=== PATIENT | female | born 1970 | race African-American/Black ===

== ENCOUNTER → 2021-12-21 | Outpatient (CLI) | payer MEDICAID ==
[2021-12-21 16:16] LABS: FREE T4 1.39 NG/DL (0.76-1.46); THYROID STIMULATING HORMONE 0.107 uIU/ML (0.358-3.740)
== END ==
LOC: M LAB 15:01
PROVIDERS: ATTEND Internal Medicine
DX: E89.0 Postprocedural hypothyroidism (principal)

== ENCOUNTER → 2022-03-02 | Outpatient (CLI) | payer OTHER | LOC: M RAD 11:44 | PROVIDERS: ATTEND Physician Assistant | DX: M25.561 Pain in right knee (principal) ==

== ENCOUNTER 2022-03-06 10:00 | Outpatient (RCR) | payer OTHER | END 2022-03-10 | LOC: M PT 10:00 | PROVIDERS: ATTEND Physician Assistant | DX: M25.561 Pain in right knee (principal) ==

== ENCOUNTER → 2022-03-06 | Outpatient (CLI) | payer OTHER ==
[2022-03-06 12:10] LABS: FREE T4 1.4 NG/DL (0.76-1.46); THYROID STIMULATING HORMONE 0.724 uIU/ML (0.358-3.740)
== END ==
LOC: M LAB 10:53
PROVIDERS: ATTEND Nurse Practitioner Family
DX: E89.0 Postprocedural hypothyroidism (principal)

== ENCOUNTER → 2022-04-15 | Outpatient (CLI) | payer OTHER ==
[~2022-04-15] MED LIST: CETI-24 PO; SYNT125T PO; VITA200016 PO
== END ==
LOC: M LABSMTC 11:20
PROVIDERS: ATTEND Surgery
DX: Z01.812 Encounter for preprocedural laboratory examination (principal)

== ENCOUNTER 2022-04-18 09:31 | Day surgery (SDC) | payer OTHER ==
[~2022-04-18] VITALS: Ht 157.5 cm; Wt 52.2 kg
[~2022-04-18 09:31] MED LIST changes: +LIDOCAINE 2% 100MG/5ML SDV (FOR ANES.) As Ordered ONE; +NS 1,000 ML IV ONE; +propofoL 200 MG/20 ML VIAL As Ordered ONE
[2022-04-18 12:30] VITALS: BP 143/64
== END 2022-04-18 12:42 | disposition home or self-care (01) ==
LOC: M OPP 09:31
PROVIDERS: ATTEND Surgery
DX: Z12.11 Encounter for screening for malignant neoplasm of colon (principal); K64.1 Second degree hemorrhoids; Z91.018 Allergy to other foods

== ENCOUNTER 2022-05-05 11:56 | Emergency (ER) | payer OTHER ==
[~2022-05-05] VITALS: Ht 157.5 cm; Wt 51.4 kg
[~2022-05-05 11:56] MED LIST changes: -LIDOCAINE 2% 100MG/5ML SDV (FOR ANES.) As Ordered ONE; -NS 1,000 ML IV ONE; -propofoL 200 MG/20 ML VIAL As Ordered ONE
[2022-05-05 11:57] VITALS: BP 129/60
== END 2022-05-05 13:44 | disposition home or self-care (01) ==
LOC: M ED 11:56
DX: S93.402A Sprain of unspecified ligament of left ankle, initial encounter (principal); X58.XXXA Exposure to other specified factors, initial encounter; Y92.018 Other place in single-family (private) house as the place of occurrence of the external cause; E03.9 Hypothyroidism, unspecified; Z91.018 Allergy to other foods; J30.89 Other allergic rhinitis; Z79.899 Other long term (current) drug therapy; Z79.890 Hormone replacement therapy

== ENCOUNTER → 2022-05-22 | Outpatient (CLI) | payer OTHER | LOC: M SOG 08:04 | PROVIDERS: ATTEND Orthopaedic Surgery Hand Surgery | DX: M25.572 Pain in left ankle and joints of left foot (principal) ==

== ENCOUNTER → 2022-09-17 | Outpatient (CLI) | payer OTHER | LOC: M LABSMTC 11:37 | PROVIDERS: ATTEND Anesthesiology | DX: Z01.812 Encounter for preprocedural laboratory examination (principal); Z11.52 Encounter for screening for COVID-19 ==

== ENCOUNTER 2022-09-19 06:18 | Day surgery (SDC) | payer OTHER ==
[~2022-09-19] VITALS: Ht 157.5 cm; Wt 51.9 kg
[2022-09-19] MEDS ORDERED: LR 1,000 ML IV SCH ×2 (06:35→09:20)
[2022-09-19] MEDS ORDERED: ceFAZolin SOD 2 GM in IV 1 EA IV ONE (07:00)
[2022-09-19] MEDS ORDERED: LIDOCAINE 1% SDV 30ML VIAL As Ordered ONE (07:09)
[2022-09-19] MEDS ORDERED: BUPIVACAINE HCL 0.5% 30ML VIAL As Ordered ONE (07:09)
[2022-09-19] MEDS ORDERED: LIDOCAINE 2% 100MG/5ML SDV (FOR ANES.) As Ordered ONE (07:13)
[2022-09-19] MEDS ORDERED: MIDAZOLAM INJ 2MG/2ML VIAL (J2250 PER 1MG) As Ordered ONE (07:13)
[2022-09-19] MEDS ORDERED: fentaNYL 100 MCG/2 ML INJECTION As Ordered ONE (07:13)
[2022-09-19] MEDS ORDERED: propofoL 200 MG/20 ML VIAL As Ordered ONE (07:13)
[2022-09-19] MEDS ORDERED: ONDANSETRON 4MG 2ML VIAL As Ordered ONE (07:42)
[2022-09-19] MEDS ORDERED: dexameTHASONE 4 MG/ML 1ML VIAL (J1100 PER 1MG) As Ordered ONE (07:42)
[2022-09-19] MEDS ORDERED: ACETAMINOPHEN 1000MG 100ML IV BAG As Ordered ONE (07:44)
[2022-09-19] MEDS ORDERED: KETOROLAC 60MG 2ML VIAL As Ordered ONE (08:01)
[2022-09-19] MEDS ORDERED: ePHEDrine SULFATE 25 MG/5 ML(5MG/ML) SYRINGE As Ordered ONE (08:02)
[2022-09-19] MEDS ORDERED: ONDANSETRON 4MG 2ML VIAL IV PRN (09:20)
[2022-09-19] MEDS ORDERED: HYDROMORPHONE HCL 0.5 MG/ 0.5 ML SYRINGE (J1170 PER 1) IV PRN (09:20)
[2022-09-19] MEDS ORDERED: fentaNYL 100 MCG/2 ML INJECTION IV PRN (09:20)
[2022-09-19] MEDS ORDERED: oxyCODONE 5MG TAB PO PRN (09:20)
[2022-09-19 10:20] VITALS: BP 135/72
== END 2022-09-19 10:47 | disposition home or self-care (01) ==
LOC: M SDC 06:18
PROVIDERS: ATTEND Podiatrist Foot & Ankle Surgery
DX: M21.612 Bunion of left foot (principal); M20.12 Hallux valgus (acquired), left foot; E03.9 Hypothyroidism, unspecified; J30.1 Allergic rhinitis due to pollen; Z79.899 Other long term (current) drug therapy; Z91.018 Allergy to other foods; Z88.3 Allergy status to other anti-infective agents
CPT/HCPCS: 28299; 88300; C1713; J0131; J0690; J1100; J1885; J2250; J2405; J3010

== ENCOUNTER → 2022-11-01 | Outpatient (REF) | payer OTHER, MEDICAID ==
[2022-11-01 14:40] LABS: HEMATOCRIT 45.3 % (36.0-47.0); HEMOGLOBIN 14.9 g/dl (12.0-15.5); MEAN CORPUSCULAR HEMOGLOBIN 30.5 pg (27.0-33.0); MEAN CORPUSCULAR HGB CONC 32.9 g/dl (32.0-36.5); MEAN CORPUSCULAR VOLUME 92.6 fl (80.0-96.0); PLATELET COUNT, AUTOMATED 185 10^3/uL (150-450); RED BLOOD COUNT 4.89 10^6/uL (4.00-5.40); WHITE BLOOD COUNT 5.1 10^3/uL (4.0-10.0)
[2022-11-01 15:03] LABS: ALBUMIN 4.3 G/DL (3.2-5.2); ALKALINE PHOSPHATASE 82 U/L (46-116); ALT/SGPT 29 U/L (7.0-40); AST/SGOT 30 U/L (<34); BILIRUBIN,TOTAL 0.4 MG/DL (0.3-1.2); BLOOD UREA NITROGEN 14 MG/DL (9-23); CALCIUM LEVEL 9.6 MG/DL (8.5-10.1); CARBON DIOXIDE LEVEL 27 MMOL/L (20-31); CHLORIDE LEVEL 102 MMOL/L (98-107); CHOLESTEROL LEVEL 149 MG/DL (<200); CHOLESTEROL RISK RATIO 2.26 (<5); CREATININE FOR GFR 1.11 MG/DL (0.55-1.30); GLOMERULAR FILTRATION RATE > 60.0 (>51); GLUCOSE, FASTING 99 MG/DL (60-100); HDL CHOLESTEROL 65.9 MG/DL (>40); LDL CHOLESTEROL 71.1 MG/DL (<100); NON-HDL-C 83 MG/DL; POTASSIUM SERUM 4.1 MMOL/L (3.5-5.1); SODIUM LEVEL 136 MMOL/L (136-145); TOTAL PROTEIN 8.1 G/DL (5.7-8.2); TRIGLYCERIDES LEVEL 60 MG/DL (<150)
[2022-11-01 15:11] LABS: THYROID STIMULATING HORMONE 1.742 uIU/ML (0.55-4.78)
[2022-11-01 15:12] LABS: TOTAL 25(OH) VITAMIN D 15.8 NG/ML (20.0-100.0)
[2022-11-01 15:14] LABS: FREE T4 1.33 NG/DL (0.89-1.76)
[2022-11-01 15:45] LABS: HEPATITIS C VIRUS ABY INDEX 0.1 INDEX (<0.8)
== END ==
LOC: M LAB REF 12:06
PROVIDERS: ATTEND Physician Assistant
DX: E03.9 Hypothyroidism, unspecified (principal); Z13.1 Encounter for screening for diabetes mellitus; E55.9 Vitamin D deficiency, unspecified; Z11.59 Encounter for screening for other viral diseases

== ENCOUNTER → 2023-04-11 | Outpatient (REF) | payer OTHER ==
[2023-04-11 17:40] LABS: APPEARANCE, URINE HAZY (CLEAR); BACTERIA, URINE AUTO 1+ (NEGATIVE); BILIRUBIN, URINE AUTO NEGATIVE (NEGATIVE); BLOOD, URINE BLOOD 1+ (NEGATIVE); COLOR, URINE YELLOW (YELLOW); GLUCOSE, URINE (UA) AUTO NEGATIVE (NEGATIVE); KETONE, URINE AUTO NEGATIVE (NEGATIVE); LEUKOCYTE ESTERASE, URINE AUTO 2+ (NEGATIVE); MUCUS, URINE SMALL (NEGATIVE); NITRITE, URINE AUTO NEGATIVE (NEGATIVE); PROTEIN, URINE AUTO NEGATIVE (NEGATIVE); RBC, URINE AUTO 13 /HPF (0-3); SPECIFIC GRAVITY URINE AUTO 1.024 (1.002-1.035); SQUAMOUS EPITHELIAL CELL UR AU 1 /HPF (0-6); WBC, URINE AUTO 29 /HPF (0-3)
[2023-04-11 19:24] LABS: GC DNA AMPLIFICATION NEGATIVE (NEGATIVE)
== END ==
LOC: M LAB REF 17:17
PROVIDERS: ATTEND Nurse Practitioner Family
DX: Z11.9 Encounter for screening for infectious and parasitic diseases, unspecified (principal)

== ENCOUNTER → 2023-12-09 | Outpatient (CLI) | payer OTHER | LOC: M LAB 16:02 | PROVIDERS: ATTEND Nurse Practitioner Family | DX: Z11.9 Encounter for screening for infectious and parasitic diseases, unspecified (principal) ==

== ENCOUNTER → 2024-06-09 | Outpatient (REF) | payer OTHER, MEDICAID ==
[2024-06-09 14:25] LABS: HEMATOCRIT 42.9 % (36.0-47.0); HEMOGLOBIN 14.2 g/dl (12.0-15.5); MEAN CORPUSCULAR HEMOGLOBIN 30.5 pg (27.0-33.0); MEAN CORPUSCULAR HGB CONC 33.1 g/dl (32.0-36.5); MEAN CORPUSCULAR VOLUME 92.1 fl (80.0-96.0); PLATELET COUNT, AUTOMATED 215 10^3/uL (150-450); RED BLOOD COUNT 4.66 10^6/uL (4.00-5.40); WHITE BLOOD COUNT 5.1 10^3/uL (4.0-10.0)
[2024-06-09 14:35] LABS: ALBUMIN 3.6 G/DL (3.2-5.2); ALKALINE PHOSPHATASE 93 U/L (46-116); ALT/SGPT 31 U/L (7.0-40); AST/SGOT 39 U/L (<34); BILIRUBIN,TOTAL 0.3 MG/DL (0.3-1.2); BLOOD UREA NITROGEN 16 MG/DL (9-23); CALCIUM LEVEL 9.2 MG/DL (8.5-10.1); CARBON DIOXIDE LEVEL 29 MMOL/L (20-31); CHLORIDE LEVEL 105 MMOL/L (98-107); CHOLESTEROL LEVEL 199 MG/DL (<200); CREATININE FOR GFR 0.99 MG/DL (0.55-1.30); GLOMERULAR FILTRATION RATE > 60.0 (>51); GLUCOSE, FASTING 91 MG/DL (60-100); HDL CHOLESTEROL 86.4 MG/DL (>40); LDL CHOLESTEROL 92.8 MG/DL (<100); NON-HDL-C 112.6 MG/DL; POTASSIUM SERUM 3.9 MMOL/L (3.5-5.1); SODIUM LEVEL 140 MMOL/L (136-145); TOTAL PROTEIN 7.2 G/DL (5.7-8.2); TRIGLYCERIDES LEVEL 99 MG/DL (<150)
[2024-06-09 14:37] LABS: THYROID STIMULATING HORMONE 58.177 uIU/ML (0.55-4.78)
[2024-06-09 14:38] LABS: TOTAL 25(OH) VITAMIN D 6.7 NG/ML (20.0-100.0)
== END ==
LOC: M LAB REF 13:41
PROVIDERS: ATTEND Physician Assistant
DX: E03.9 Hypothyroidism, unspecified (principal); Z85.850 Personal history of malignant neoplasm of thyroid; E55.9 Vitamin D deficiency, unspecified

== ENCOUNTER → 2024-08-04 | Outpatient (REF) | LOC: M LAB 11:22 | PROVIDERS: ATTEND Family Medicine | DX: Z00.00 Encounter for general adult medical examination without abnormal findings (principal) ==

== ENCOUNTER → 2024-08-17 | Outpatient (CLI) | payer OTHER | LOC: M WHC 09:05 | PROVIDERS: ATTEND Physician Assistant | DX: Z12.31 Encounter for screening mammogram for malignant neoplasm of breast (principal) ==

== ENCOUNTER → 2024-10-07 | Outpatient (CLI) | payer OTHER ==
[2024-10-07 16:32] LABS: ALBUMIN 3.3 G/DL (3.2-5.2); BILIRUBIN,DIRECT 0.2 MG/DL (<0.4); BILIRUBIN,TOTAL 0.5 MG/DL (0.3-1.2); TOTAL PROTEIN 7.7 G/DL (5.7-8.2)
[2024-10-07 16:34] LABS: TOTAL 25(OH) VITAMIN D 11.3 NG/ML (20.0-100.0)
[2024-10-07 16:35] LABS: THYROID STIMULATING HORMONE 0.008 uIU/ML (0.55-4.78)
== END ==
LOC: M LAB 15:18
PROVIDERS: ATTEND Physician Assistant
DX: E89.0 Postprocedural hypothyroidism (principal); R74.01 Elevation of levels of liver transaminase levels; Z85.850 Personal history of malignant neoplasm of thyroid

== ENCOUNTER 2025-05-25 23:34 | Emergency (ER) | payer OTHER ==
[~2025-05-25] VITALS: Ht 157.5 cm; Wt 52.3 kg
[2025-05-25 23:38] VITALS: BP 129/67; TEMP 97.4; O2SAT 98
[2025-05-26] MEDS: IBUPROFEN 600 MG TAB PO ONE (01:55)
== END 2025-05-26 02:09 | disposition home or self-care (01) ==
LOC: M ED 23:34
DX: S92.511A Displaced fracture of proximal phalanx of right lesser toe(s), initial encounter for closed fracture (principal); W22.8XXA Striking against or struck by other objects, initial encounter; E03.9 Hypothyroidism, unspecified; F17.200 Nicotine dependence, unspecified, uncomplicated; Y92.009 Unspecified place in unspecified non-institutional (private) residence as the place of occurrence of the external cause; Y93.89 Activity, other specified; Y99.9 Unspecified external cause status; Z88.1 Allergy status to other antibiotic agents; Z88.8 Allergy status to other drugs, medicaments and biological substances; Z91.018 Allergy to other foods; Z91.048 Other nonmedicinal substance allergy status; Z79.899 Other long term (current) drug therapy